=== PATIENT | male | born 1985 | race Two or more races ===

== ENCOUNTER → 2019-03-22 08:32 | Outpatient (CLI) | payer OTHER | END | disposition home or self-care (01) | LOC: LAB 08:32 | DX: A63.8 Other specified predominantly sexually transmitted diseases (principal) ==

== ENCOUNTER 2020-07-28 13:21 | Emergency (ER) | payer OTHER ==
[~2020-07-28] VITALS: Ht 165.1 cm; Wt 68.0 kg
== END 2020-07-28 16:42 | disposition home or self-care (01) ==
LOC: ER 13:21
DX: N20.0 Calculus of kidney (principal)

== ENCOUNTER 2021-10-16 10:09 | Outpatient (CLI) | payer OTHER | END 2021-10-16 10:23 | disposition home or self-care (01) | LOC: RAD 10:09 | PROVIDERS: ATTEND Preventive Medicine Occupational Medicine | DX: N21.9 Calculus of lower urinary tract, unspecified (principal) ==

== ENCOUNTER 2022-01-29 15:00 | Outpatient (CLI) | payer OTHER | END 2022-01-29 15:10 | disposition home or self-care (01) | LOC: LAB 15:00 | PROVIDERS: ATTEND Preventive Medicine Occupational Medicine | DX: U07.1 COVID-19 (principal); Z20.822 Contact with and (suspected) exposure to COVID-19; A49.3 Mycoplasma infection, unspecified site; J10.1 Influenza due to other identified influenza virus with other respiratory manifestations; B34.9 Viral infection, unspecified ==